=== PATIENT | female | born 2005 | race Caucasian/White ===

== ENCOUNTER 2023-05-04 08:31 | Outpatient (AMB) | payer OTHER, SELFPAY ==
--- NOTE | 2023-05-04 08:33 | MHC.AMWC19YF ---
Intake Vital Signs 05/04/23 08:37 Height 5 ft 8 in Height percentile 95 Weight 146 lb Weight percentile 90 Measurement Type Standing Scale BMI 22.2 BMI percentile 75 Temp 98.0 F Temp Source Temporal Artery Scan Pulse 64 Pulse Source Pulse Oximeter BP 108/62 Blood Pressure Source Manual Cuff/Palpation Position Sitting Pulse Oximetry (%) 99 Pediatric Intake Visit Reasons: [facility] 17 year female Accompanied by: Self / Same As Patient Allergies No Known Allergies Allergy (Verified 05/04/23 08:39) Medication List - Last Reconciled 05/04/23 by Kym Acosta PA-C scopolamine base 1 patch transdermal Q3D PRN HPI [facility] 18-21 Year Female Notes motion sickness whenever someone else is driving. Has tried a motion sickness bracelet and states this was not helpful. Interested in trying a motion sickness patch. Nutrition Dietary habits: Reports well-balanced diet, daily servings of fruits and vegetables and daily servings of milk/calcium Exercise Stays active, normal exercise tolerance. Genitourinary Cycles are regular, associated cramping, no longer on OC Bowel movements: normal Urine output: normal Elimination problems: none Dental Dental care: Reports receives dental care, brushes Brushes: twice daily and dental care advice given Behavioral Behavior: normal peer interactions Mental health: normal mood Educational/Employment Works at a [employer] store in the [employer]. 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 Sexual Sexual preference: prefers men (in a monogamous relationship) sexual history: currently sexually active (reviewed safe sex practices and healthy relationships.) Sleep Sleep location: 4-7 years: own bed Sleep problems: No (9-10) Safety Car safety: well child 16-17 years: seat belt (has her license.) [facility] Medical History No pertinent past medical history Surgical History No pertinent past surgical history Social History Household Members: Family Housing: House Are you a primary transitional care manager to a significant other at home: No Do you presently have visiting nurse or other home services: No Cognitive needs: No Hearing needs: No Vision needs: No Questionnaire CRAFFT Screening Tool PART A: In the PAST 12 MONTHS, did you: Drink any alcohol (more than few sips)? (Do not count sips of alcohol taken during family or rastafari events.): No Smoke any marijuana or hashish?: No Use anything else to get high? (includes illegal drugs, over the counter/prescription drugs, or things that you sniff/ocampo?): No PART B: If answered YES to ANY above: Have you ever been in a CAR driven by someone (including yourself) who was high or had been using alcohol or drugs?: No Do you ever use alcohol or drugs to RELAX, feel better about yourself, or fit in?: No Do you ever use alcohol or drugs while you are by yourself, or ALONE?: No Do you ever FORGET things while using alcohol or drugs?: No Do your FAMILY or FRIENDS ever tell you that you should cut down on your drinking or drug use?: No Have you ever gotten into TROUBLE while you were using alcohol or drugs?: No CRAFFT Assessment Charge Perryt: LEILANI [id number] Thrive Questionnaire Date Thrive assessed: 05/04/23 I am a: Parent/Caregiver What is your living situation today?: I have a steady place to live Within the past 12 months, did the food you bought not last and you didn't have the money to get more?: Never true Within the past 12 months, did you worry whether your food would run out before you got money to buy more?: Never true Do you have trouble paying for medicines?: No Do you have trouble getting transportation to medical appointments?: No Do you have trouble paying your heating and electricity bill?: No Do you have trouble taking care of your child, family member or friend?: No Do you have trouble with day-to-day activities such as bathing, preparing meals, shopping, managing finances, etc.?: No Are you currently unemployed and looking for a job?: No Are you interested in more education?: No TAPAN-7 AMB Questionnaire TAPAN-7 Date TAPAN - 7 assessed: 05/04/23 Feeling nervous, anxious, or on edge: 0 = Not at all Not being able to stop or control worryin = Not at all Worrying too much about different things: 0 = Not at all Trouble relaxin = Not at all Being so restless that it is hard to sit still: 0 = Not at all Becoming easily annoyed or irritable: 0 = Not at all Feeling afraid as if something awful might happen: 0 = Not at all Total TAPAN-7 score (0-4 normal; 5-9 mild; 10-14 moderate; 15-21 severe): 0 Source: Developed by Drs. Benjamin Tong, Danita Acosta, Graham Jaffe and colleagues, with an educational tari from [employer]: [employer]. TAPAN-7 Assessment Billing TAPAN-7 Assessment Tool: TAPAN-7 Assessment 96537 PHQ-9: Modified for Teens Feeling down, depressed, irritable or hopeless?: Not at all Little interest or pleasure in doing things?: Not at all Trouble falling asleep, staying asleep, or sleeping too much?: Not at all Poor appetite, weight loss or overeating?: Not at all Feeling tired, or having little energy?: Not at all Feeling bad about yourself-or feeling that you are a failure, or that you let yourself/your family down?: Not at all Trouble concentrating on things like school work, reading, or watching TV?: Not at all Moving/speaking so slowly that other people have noticed? Or the opposite-being so fidgety that you were moving more than usual?: Not at all Thoughts that you would be better off , or of hurting yourself in some way?: Not at all In the past year have you felt depressed or sad most days, even if you felt okay sometimes?: No How difficult have these problems made it for you to do your work, take care of things at home, or get along with other?: Not difficult at all Has there been a time in the past month when you have had serious thoughts about ending your life?: No Have you ever, in your entire life, tried to kill yourself or made a suicide attempt?: No Score: 0 Review of Systems Const All systems reviewed & are unremarkable except as noted in HPI and below PE 13-21 years Constitutional General: alert, awake and active Nutritional appearance: well nourished [facility] [place] Head: Reports normal to inspection, normocephalic and atraumatic Ears: Reports external ears normal, TMs normal bilaterally, EAC's normal and external ears abnormal Nose: Reports external nose normal, nares normal, no nasal polyps and no nasal congestion or rhinorrhea Mouth: Reports palate normal, moist mucous membranes and oral mucosa normal Teeth: Reports teeth present and dentition normal Throat: Reports posterior oropharynx normal, uvula midline and tonsils normal Eyes Eyes: Reports appearance normal, no edema, no erythema and no discharge Conjunctivae: Reports conjunctivae normal Pupils: Reports PERRL EOM: Reports EOM intact bilaterally Neck Appearance: Reports normal appearance and FROM Lymphatic: Reports no lymphadenopathy noted Resp Effort & Inspection: Reports normal respiratory effort and chest with normal shape and expansion Auscultation: Reports clear to auscultation bilaterally and good air movement in all lung jolley Cardio Rate: Reports regular rate Rhythm: Reports regular rhythm Heart sounds: Reports S1 normal and S2 normal GI Inspection: Reports normal to inspection Palpation: Reports soft, no hepatomegaly, no splenomegaly and no masses Musc Thoracic/Lumbar Spine: Reports thoracic and lumbar spine normal to inspection Extremities: Reports moves all extremities equally, range of motion normal and normal gait Skin General: Reports no rashes or lesions noted and well perfused Neuro General: Reports oriented and normal affect Motor Exam: Reports normal strength and tone Assessment & Plan Assessment & Plan (1) No known problems: Code(s): Z78.9 - Other specified health status (2) Encounter for well adult exam without abnormal findings: Code(s): Z00.00 - Encounter for general adult medical examination without abnormal findings (3) Motion sickness: Code(s): T75.3XXA - Motion sickness, initial encounter Plan: Would like to trial a scopolamine patch- discussed use of this with patient, she will call with any concerns or worsening symptoms. Orders: Orders T Spot TB Today Z20.1 - Contact with and (suspected) exposure to tuberculosis Medications: New scopolamine base 1 patch transdermal Q3D PRN 10 ea 1RF nausea and vomiting Coding Level of Care Code Est Pt Prev Care 18-39y([id number]) Diagnoses No known problems Z78.9 Encounter for well adult exam without abnormal findings Z00.00 Motion sickness T75.3XXA Additional Codes CRAFFT Assessment Charge - Crafft: CRAFFT 18091 ([id number]) TAPAN-7 Assessment Billing - TAPAN-7 Assessment Tool: TAPAN-7 Assessment 49031 ([id number])
[2023-05-04 08:37] VITALS: BP 108/62; PULSE 64; TEMP 36.7; O2SAT 99; BMI 22.2
== END 2023-05-04 09:01 | disposition home or self-care (01) ==
LOC: HO.HMGP 08:31
PROVIDERS: PCP Physician Assistant; Visit Provider Physician Assistant
DX: Z00.00 Encounter for general adult medical examination without abnormal findings (principal); T75.3XXA Motion sickness, initial encounter; Z13.30 Encounter for screening examination for mental health and behavioral disorders, unspecified
CPT/HCPCS: 96127; 96160; 99395

== ENCOUNTER 2023-05-04 09:08 | Outpatient (REF) | payer OTHER, SELFPAY ==
[2023-05-06 17:03] LABS: TS Negative Control Passed; TS Panel A 0; TS Panel B 0; TS Positive Control Passed; TSpotTB Negative (Negative)
== END 2023-05-04 09:09 | disposition home or self-care (01) ==
LOC: HO.10HDL 09:08
PROVIDERS: Visit Provider Physician Assistant
DX: Z20.1 Contact with and (suspected) exposure to tuberculosis (principal)
CPT/HCPCS: 36415; 86481